=== PATIENT | female | born 1940 | race Caucasian/White ===

== ENCOUNTER 2020-07-18 08:47 | Inpatient (IN) ==
[2020-07-18] MEDS ORDERED: SODIUM CHLORIDE 0.9% 1,000 ML IV STA ×2 (09:38→10:54)
[2020-07-18 10:19] LABS: Basophils % 0.1 % (0.0-0.8); Eosinophils % 0.1 % (0.00-10.9); Hematocrit 39.4 VOL% (35.7-47.0); Hemoglobin 13.5 GM/DL (12.0-16.0); Immature Granulocytes % 0.5 %; Immature Granulocytes Absolute 0.05 #; Lymphocytes # 0.5 10*3/uL (1.4-4.0); Lymphocytes % 5.5 % (21.3-54.2); Mean Corpuscular HGB Conc 34.3 GM/DL (32-36); Mean Corpuscular Volume 88.3 FL (87-102); Mean Platelet Volume 10.4 FL (9.6-12.0); Monocytes % 10.2 % (1.7-12.7); Neutrophils % 83.6 % (38.7-73.9); Platelet Count 348 T/CUMM (130-400); Red Blood Count 4.46 MC/CUMM (3.8-5.5); Red Cell Distribution Width 12.5 % (9.3-17.3); White Blood Count 9.9 T/CUMM (4-12)
[2020-07-18 10:30] LABS: Bilirubin,Urine Negative (Negative); Blood, Urine Negative (Negative); Glucose,Urine (UA) Negative (Negative); Hyaline Casts,Urine 1 /LPF (0-3); Ketones,Urine Negative (Negative); Mucus,Urine Few /LPF (Occasional); Nitrite,Urine Negative (Negative); Protein,Urine 30 MG/DL; RBC,Urine 8 /HPF (0-4); Squamous Epithelial Cell,Urine Occasional /HPF (0-10); Urine Appearance CLEAR (Clear); Urine Color Yellow (Yellow); Urine Specific Gravity 1.015 (1.001-1.035); Urine Urobilinogen < 2.0 EU/DL (0.2-1.0); WBC,Urine 3 /HPF (0-6)
[2020-07-18 10:45] LABS: Alanine Aminotransferase 19 U/L (13-56); Albumin 3.4 G/DL (3.4-5.0); Alkaline Phosphatase 134 U/L (45-117); Aspartate Amino Transferase 28 U/L (0-37); Blood Urea Nitrogen 12 MG/DL (7-18); Calcium 8.9 MG/DL (8.5-10.1); Carbon Dioxide 24 MMOL/L (21-32); Estimated Glom Filtration Rate 62 ML/MIN; Ferritin 630.4 ng/ml (8-252); Glucose 125 MG/DL (74-106); Osmolality,Calculated 253.4 MOS/KG (273-304); Potassium 3.2 MMOL/L (3.5-5.1); Sodium 126 MMOL/L (136-145); Total Protein 8.3 G/DL (6.4-8.2)
[2020-07-18] MEDS ORDERED: cefTRIAXone 1,000 MG in SODIUM CHLORIDE 0.9% 100 ML IV STA (11:01)
[2020-07-18] MEDS ORDERED: DEXTROSE 50% 25 GM/50 ML VIAL IV PRN (11:16)
[2020-07-18] MEDS ORDERED: GLUCAGON 1 MG VIAL IM PRN (11:16)
[2020-07-18] MEDS ORDERED: guaiFENesin/DM ER 600-30 MG TABLET PO PRN (11:16)
[2020-07-18] MEDS ORDERED: ONDANSETRON 4 MG/2 ML VIAL IV PRN (11:16)
[2020-07-18] MEDS ORDERED: DOCUSATE SODIUM 100 MG CAPSULE PO PRN (11:16)
[2020-07-18] MEDS ORDERED: hydrALAZINE 20 MG/1 ML VIAL IV PRN (11:16)
[2020-07-18] MEDS ORDERED: AZITHROMYCIN 250 MG TABLET PO ONE (12:13)
[2020-07-18] MEDS ORDERED: MAGNESIUM SULF RIDER 4 GM in PREMIX 1 EACH IV PRN (12:17)
[2020-07-18] MEDS: SODIUM CHLORIDE 0.9% 1,000 ML IV SCH (15:33)
[2020-07-18] MEDS: POTASSIUM CHLORIDE 20 MEQ TABLET PO PRN ×3 (15:33→19:15)
[2020-07-18] MEDS: ENOXAPARIN 40 MG/0.4 ML SYRINGE SUBCUT SCH (15:33)
[2020-07-18] MEDS ORDERED: SODIUM CHLORIDE 0.9% 1,000 ML IV ONE (15:55)
[2020-07-18] MEDS ORDERED: ALPRAZolam 0.5 MG TABLET PO ONE (15:57)
[2020-07-18] MEDS ORDERED: GALCANEZUMAB GNLM 120 MG/ML SUBCUT SCH (16:00)
[2020-07-18] MEDS: ACETAMINOPHEN 325 MG TABLET PO PRN ×2 (16:15→22:19)
[2020-07-18] MEDS: MAGNESIUM SULF RIDER 2 GM in PREMIX 1 EACH IV PRN (17:48)
[2020-07-18] MEDS: ALPRAZolam 0.5 MG TABLET PO SCH (21:42)
[2020-07-19] MEDS: AMANTADINE 100 MG CAPSULE PO SCH ×3 (00:04→21:22)
[2020-07-19] MEDS: ACETAMINOPHEN 325 MG TABLET PO PRN ×2 (04:47→21:22)
[2020-07-19] MEDS: SODIUM CHLORIDE 0.9% 1,000 ML IV SCH ×3 (04:49→21:23)
[2020-07-19 06:46] LABS: Basophils % 0.3 % (0.0-0.8); Eosinophils % 0.5 % (0.00-10.9); Hematocrit 31.8 VOL% (35.7-47.0); Hemoglobin 10.9 GM/DL (12.0-16.0); Immature Granulocytes % 0.6 %; Immature Granulocytes Absolute 0.05 #; Lymphocytes # 0.7 10*3/uL (1.4-4.0); Lymphocytes % 8.8 % (21.3-54.2); Mean Corpuscular HGB Conc 34.3 GM/DL (32-36); Mean Corpuscular Volume 89.3 FL (87-102); Mean Platelet Volume 10.9 FL (9.6-12.0); Monocytes % 10.3 % (1.7-12.7); Neutrophils % 79.5 % (38.7-73.9); Platelet Count 317 T/CUMM (130-400); Red Blood Count 3.56 MC/CUMM (3.8-5.5); Red Cell Distribution Width 12.5 % (9.3-17.3); White Blood Count 7.7 T/CUMM (4-12)
[2020-07-19 07:22] LABS: Calcium 7.9 MG/DL (8.5-10.1); Osmolality,Calculated 264.4 MOS/KG (273-304); Potassium 3.2 MMOL/L (3.5-5.1)
[2020-07-19 07:22] LABS: Atypical Lymphocytes Few
[2020-07-19 07:23] LABS: Platelet Estimate Normal
[2020-07-19] MEDS: CYANOCOBALAMIN 500 MCG TABLET PO SCH (09:13)
[2020-07-19] MEDS: AZITHROMYCIN 250 MG TABLET PO SCH (09:13)
[2020-07-19] MEDS: POTASSIUM CHLORIDE 20 MEQ TABLET PO PRN ×4 (09:13→16:36)
[2020-07-19] MEDS: FLUoxetine 20 MG CAPSULE PO SCH (09:13)
[2020-07-19] MEDS: cefTRIAXone 1,000 MG in SYRINGE 1 EACH IV SCH (09:13)
[2020-07-19] MEDS: FLUTICASONE 50 MCG NASAL SPRAY 16 GM BOTTLE BOTH NARES SCH (09:13)
[2020-07-19] MEDS: ALPRAZolam 0.5 MG TABLET PO SCH ×2 (09:13→21:20)
[2020-07-19] MEDS ORDERED: guaiFENesin 200 MG/10 ML UDCUP PO PRN (09:33)
[2020-07-19] MEDS: oxyCODONE IR 5 MG TABLET PO PRN ×2 (11:16→21:20)
[2020-07-19] MEDS: ENOXAPARIN 40 MG/0.4 ML SYRINGE SUBCUT SCH (11:16)
[2020-07-19] MEDS ORDERED: BENZONATATE 100 MG CAPSULE PO PRN (15:41)
[2020-07-19] MEDS: traZODone 50 MG TABLET PO PRN (21:23)
[2020-07-20] MEDS: SODIUM CHLORIDE 0.9% 1,000 ML IV SCH ×3 (02:28→17:45)
[2020-07-20] MEDS: ACETAMINOPHEN 325 MG TABLET PO PRN ×2 (05:30→23:57)
[2020-07-20 06:35] LABS: Basophils % 0.2 % (0.0-0.8); Eosinophils # 0.1 10*3/uL (0.0-0.87); Hematocrit 31.8 VOL% (35.7-47.0); Hemoglobin 10.8 GM/DL (12.0-16.0); Immature Granulocytes % 0.5 %; Immature Granulocytes Absolute 0.04 #; Lymphocytes # 0.6 10*3/uL (1.4-4.0); Lymphocytes % 6.7 % (21.3-54.2); Mean Corpuscular Volume 91.9 FL (87-102); Mean Platelet Volume 10.8 FL (9.6-12.0); Monocytes % 8.2 % (1.7-12.7); Neutrophils % 83.4 % (38.7-73.9); Platelet Count 251 T/CUMM (130-400); Red Blood Count 3.46 MC/CUMM (3.8-5.5); Red Cell Distribution Width 12.6 % (9.3-17.3); White Blood Count 8.8 T/CUMM (4-12)
[2020-07-20 06:54] LABS: Calcium 7.7 MG/DL (8.5-10.1); Osmolality,Calculated 263.4 MOS/KG (273-304); Potassium 3.8 MMOL/L (3.5-5.1)
[2020-07-20 07:04] LABS: Hypochromasia 1+; Lymphocytes 6 % (20-55); Microcytosis 1+; Platelet Estimate Adequate; Segmented Neutrophils 84 % (50-85); Total Cells Counted 100
[2020-07-20 07:07] LABS: Free T4 (Free Thyroxine) 1.65 NG/DL (0.76-1.46)
[2020-07-20] MEDS: CYANOCOBALAMIN 500 MCG TABLET PO SCH (08:11)
[2020-07-20] MEDS: cefTRIAXone 1,000 MG in SYRINGE 1 EACH IV SCH (08:11)
[2020-07-20] MEDS: MAGNESIUM SULF RIDER 2 GM in PREMIX 1 EACH IV PRN (08:11)
[2020-07-20] MEDS: ALPRAZolam 0.5 MG TABLET PO SCH ×2 (08:11→20:43)
[2020-07-20] MEDS: FLUoxetine 20 MG CAPSULE PO SCH (08:11)
[2020-07-20] MEDS: AMANTADINE 100 MG CAPSULE PO SCH ×2 (08:11→20:43)
[2020-07-20] MEDS: AZITHROMYCIN 250 MG TABLET PO SCH (08:12)
[2020-07-20] MEDS: FLUTICASONE 50 MCG NASAL SPRAY 16 GM BOTTLE BOTH NARES SCH (08:12)
[2020-07-20] MEDS: ENOXAPARIN 40 MG/0.4 ML SYRINGE SUBCUT SCH (12:04)
[2020-07-20 14:36] LABS: Bacteria,Urine Occasional /HPF (Few); Bilirubin,Urine Negative (Negative); Blood, Urine Small mg/dL (Negative); Glucose,Urine (UA) Negative (Negative); Ketones,Urine 20 mg/dL (Negative); Mucus,Urine Occasional /LPF (Occasional); Nitrite,Urine Negative (Negative); Protein,Urine Negative; RBC,Urine 2 /HPF (0-4); Squamous Epithelial Cell,Urine Occasional /HPF (0-10); Urine Appearance CLEAR (Clear); Urine Color Straw (Yellow); Urine Specific Gravity 1.009 (1.001-1.035); Urine Urobilinogen < 2.0 EU/DL (0.2-1.0); WBC,Urine 1 /HPF (0-6)
[2020-07-20] MEDS ORDERED: NICOTINE 14 MG/24 HR PATCH TRANSDERM PRN (15:28)
[2020-07-20] MEDS ORDERED: DILTIAZEM 50 MG/10 ML VIAL IV ONE (15:53)
[2020-07-20] MEDS: DILTIAZEM INJ 100 MG in SODIUM CHLORIDE 0.9% 100 ML IV SCH (16:56)
[2020-07-20] MEDS: oxyCODONE IR 5 MG TABLET PO PRN (22:00)
[2020-07-21] MEDS: DILTIAZEM INJ 100 MG in SODIUM CHLORIDE 0.9% 100 ML IV SCH ×3 (01:30→20:27)
[2020-07-21 05:46] LABS: Basophils % 0.3 % (0.0-0.8); Eosinophils # 0.1 10*3/uL (0.0-0.87); Eosinophils % 0.8 % (0.00-10.9); Hematocrit 31.2 VOL% (35.7-47.0); Hemoglobin 10.3 GM/DL (12.0-16.0); Immature Granulocytes % 0.6 %; Immature Granulocytes Absolute 0.06 #; Lymphocytes # 0.3 10*3/uL (1.4-4.0); Lymphocytes % 3.2 % (21.3-54.2); Mean Corpuscular Volume 89.7 FL (87-102); Monocytes % 7.7 % (1.7-12.7); Neutrophils % 87.4 % (38.7-73.9); Platelet Count 350 T/CUMM (130-400); Red Blood Count 3.48 MC/CUMM (3.8-5.5); Red Cell Distribution Width 12.5 % (9.3-17.3); White Blood Count 10.7 T/CUMM (4-12)
[2020-07-21 06:14] LABS: Calcium 7.7 MG/DL (8.5-10.1); Osmolality,Calculated 267.1 MOS/KG (273-304); Potassium 2.8 MMOL/L (3.5-5.1)
[2020-07-21 06:27] LABS: Hypochromasia 1+; Lymphocytes 4 % (20-55); Microcytosis 1+; Platelet Estimate Adequate; Segmented Neutrophils 95 % (50-85); Total Cells Counted 100
[2020-07-21] MEDS: SODIUM CHLORIDE 0.9% 1,000 ML IV SCH ×2 (07:17→07:37)
[2020-07-21] MEDS ORDERED: POTASSIUM CHLORIDE 20 MEQ TABLET PO ONE (07:38)
[2020-07-21] MEDS: AMANTADINE 100 MG CAPSULE PO SCH ×2 (09:00→20:29)
[2020-07-21] MEDS: CYANOCOBALAMIN 500 MCG TABLET PO SCH (09:00)
[2020-07-21] MEDS: FLUoxetine 20 MG CAPSULE PO SCH (09:00)
[2020-07-21] MEDS ORDERED: DILTIAZEM CD 240 MG CAPSULE PO SCH (09:00)
[2020-07-21] MEDS: ALPRAZolam 0.5 MG TABLET PO SCH ×2 (09:01→20:29)
[2020-07-21] MEDS: cefTRIAXone 1,000 MG in SYRINGE 1 EACH IV SCH (09:01)
[2020-07-21] MEDS: AZITHROMYCIN 250 MG TABLET PO SCH (09:01)
[2020-07-21] MEDS: FLUTICASONE 50 MCG NASAL SPRAY 16 GM BOTTLE BOTH NARES SCH (09:08)
[2020-07-21] MEDS: oxyCODONE IR 5 MG TABLET PO PRN (09:57)
[2020-07-21] MEDS: ENOXAPARIN 30 MG/0.3 ML SYRINGE SUBCUT SCH (12:30)
[2020-07-21] MEDS: ACETAMINOPHEN 325 MG TABLET PO PRN (15:10)
[2020-07-21 16:05] LABS: Calcium 8.3 MG/DL (8.5-10.1); Potassium 3.6 MMOL/L (3.5-5.1)
[2020-07-21] MEDS: POTASSIUM CHLORIDE 10 MEQ TABLET PO SCH (20:29)
[2020-07-21] MEDS: METOPROLOL TARTRATE 25 MG TABLET PO SCH (20:29)
[2020-07-22] MEDS: traZODone 50 MG TABLET PO PRN (02:53)
[2020-07-22] MEDS: DILTIAZEM INJ 100 MG in SODIUM CHLORIDE 0.9% 100 ML IV SCH ×3 (02:54→15:48)
[2020-07-22 05:55] LABS: Basophils % 0.4 % (0.0-0.8); Eosinophils # 0.1 10*3/uL (0.0-0.87); Eosinophils % 0.9 % (0.00-10.9); Hematocrit 33.2 VOL% (35.7-47.0); Hemoglobin 11.3 GM/DL (12.0-16.0); Immature Granulocytes Absolute 0.11 #; Lymphocytes # 0.3 10*3/uL (1.4-4.0); Lymphocytes % 2.5 % (21.3-54.2); Mean Corpuscular Volume 89.2 FL (87-102); Mean Platelet Volume 10.3 FL (9.6-12.0); Monocytes % 9.9 % (1.7-12.7); Neutrophils % 85.3 % (38.7-73.9); Platelet Count 378 T/CUMM (130-400); Red Blood Count 3.72 MC/CUMM (3.8-5.5); Red Cell Distribution Width 12.9 % (9.3-17.3); White Blood Count 10.5 T/CUMM (4-12)
[2020-07-22] MEDS ORDERED: diphenhydrAMINE 50 MG/1 ML VIAL IV ONE (05:58)
[2020-07-22 06:03] LABS: Calcium 8.4 MG/DL (8.5-10.1); Osmolality,Calculated 277.7 MOS/KG (273-304); Potassium 3.6 MMOL/L (3.5-5.1)
[2020-07-22 06:17] LABS: Eosinophils 1 % (0-10); Hypochromasia Slight; Lymphocytes 2 % (20-55); Microcytosis Slight; Ovalocytes Slight; Platelet Estimate Adequate; Segmented Neutrophils 87 % (50-85); Total Cells Counted 100
[2020-07-22] MEDS ORDERED: LEVALBUTEROL 1.25 MG/3 ML NEB RESP TX ONE (08:17)
[2020-07-22] MEDS: CYANOCOBALAMIN 500 MCG TABLET PO SCH ×2 (08:43→08:56)
[2020-07-22] MEDS: FLUoxetine 20 MG CAPSULE PO SCH (08:43)
[2020-07-22] MEDS: ALPRAZolam 0.5 MG TABLET PO SCH ×2 (08:44→22:06)
[2020-07-22] MEDS: oxyCODONE IR 5 MG TABLET PO PRN (08:44)
[2020-07-22] MEDS: POTASSIUM CHLORIDE 10 MEQ TABLET PO SCH ×3 (08:44→22:06)
[2020-07-22] MEDS: METOPROLOL TARTRATE 25 MG TABLET PO SCH ×2 (08:44→22:05)
[2020-07-22] MEDS: AZITHROMYCIN 250 MG TABLET PO SCH (08:44)
[2020-07-22] MEDS: AMANTADINE 100 MG CAPSULE PO SCH ×4 (08:45→22:05)
[2020-07-22] MEDS: cefTRIAXone 1,000 MG in SYRINGE 1 EACH IV SCH (08:45)
[2020-07-22] MEDS: FLUTICASONE 50 MCG NASAL SPRAY 16 GM BOTTLE BOTH NARES SCH (08:55)
[2020-07-22] MEDS: LEVALBUTEROL 1.25 MG/3 ML NEB RESP TX SCH ×3 (10:39→19:55)
[2020-07-22] MEDS ORDERED: FUROSEMIDE 40 MG/4 ML VIAL IV ONE (10:50)
[2020-07-22] MEDS: ENOXAPARIN 30 MG/0.3 ML SYRINGE SUBCUT SCH (12:04)
[2020-07-22] MEDS: ACETAMINOPHEN 325 MG TABLET PO PRN (13:40)
[2020-07-22 16:58] LABS: ABG Base Excess 0.9 MMOL/L (-2.5-2.5); ABG HCO3 25.2 MMOL/L (20-26); ABG Oxygen Saturation 94.2 % (95-100); ABG PCO2 32.4 MM HG (35-48); ABG PH 7.477 (7.35-7.45); ABG PO2 68.4 MM HG (80-95); ABG TCO2 21.6 MMOL/L (23-27)
[2020-07-22] MEDS ORDERED: DILTIAZEM CD 240 MG CAPSULE PO ONE (17:00)
[2020-07-22 17:14] LABS: Basophils % 0.1 % (0.0-0.8); Eosinophils # 0.1 10*3/uL (0.0-0.87); Eosinophils % 0.9 % (0.00-10.9); Hematocrit 33.1 VOL% (35.7-47.0); Immature Granulocytes % 0.7 %; Immature Granulocytes Absolute 0.05 #; Lymphocytes # 0.3 10*3/uL (1.4-4.0); Lymphocytes % 3.7 % (21.3-54.2); Mean Corpuscular HGB Conc 33.2 GM/DL (32-36); Mean Corpuscular Volume 89.9 FL (87-102); Mean Platelet Volume 10.4 FL (9.6-12.0); Monocytes % 11.1 % (1.7-12.7); Neutrophils % 83.5 % (38.7-73.9); Platelet Count 197 T/CUMM (130-400); Red Blood Count 3.68 MC/CUMM (3.8-5.5); White Blood Count 6.7 T/CUMM (4-12)
[2020-07-22 17:27] LABS: Calcium 8.5 MG/DL (8.5-10.1); Osmolality,Calculated 284.4 MOS/KG (273-304); Potassium 3.5 MMOL/L (3.5-5.1)
[2020-07-22] MEDS: FUROSEMIDE 20 MG/2 ML VIAL IV SCH (18:31)
[2020-07-22 18:39] LABS: Band Neutrophils 6 % (0-10); Lymphocytes 4 % (20-55); Platelet Estimate Normal; Segmented Neutrophils 84 % (50-85); Total Cells Counted 100
[2020-07-22 21:02] LABS: ABG Base Excess 2.8 MMOL/L (-2.5-2.5); ABG HCO3 26.2 MMOL/L (20-26); ABG Oxygen Saturation 60.9 % (95-100); ABG PCO2 38.8 MM HG (35-48); ABG PH 7.448 (7.35-7.45); ABG TCO2 24.2 MMOL/L (23-27); Allen Test Positive; Pt O2 Delivery Device BIPAP
[2020-07-22 21:05] LABS: ABG PO2 33.8 MM HG (80-95)
[2020-07-22] MEDS: APIXABAN 5 MG TABLET PO SCH ×2 (21:28→22:06)
[2020-07-22 21:41] LABS: ABG Base Excess 3.4 MMOL/L (-2.5-2.5); ABG HCO3 27.3 MMOL/L (20-26); ABG Oxygen Saturation 92.6 % (95-100); ABG PH 7.497 (7.35-7.45); ABG PO2 62.5 MM HG (80-95); ABG TCO2 23.6 MMOL/L (23-27)
[2020-07-22 22:59] LABS: Allen Test Positive; Pt O2 Delivery Device BIPAP
[2020-07-22 23:00] LABS: ABG Base Excess 3.2 MMOL/L (-2.5-2.5); ABG HCO3 27.2 MMOL/L (20-26); ABG Oxygen Saturation 94.9 % (95-100); ABG PCO2 33.6 MM HG (35-48); ABG PH 7.498 (7.35-7.45); ABG PO2 70.5 MM HG (80-95); ABG TCO2 23.2 MMOL/L (23-27)
[2020-07-22] MEDS: PIPERACILLIN/TAZOBACTAM 3,375 MG in SODIUM CHLORIDE 0.9% 100 ML IV SCH (23:45)
[2020-07-23] MEDS: LEVALBUTEROL 1.25 MG/3 ML NEB RESP TX SCH ×5 (01:00→14:59)
[2020-07-23] MEDS ORDERED: ACETAMINOPHEN 650 MG SUPP RECTAL PRN (01:33)
[2020-07-23] MEDS ORDERED: VANCOMYCIN INJ 1,000 MG in SODIUM CHLORIDE 0.9% 250 ML IV SCH (03:00)
[2020-07-23] MEDS ORDERED: LORazepam 2 MG/1 ML VIAL IV ONE (06:05)
[2020-07-23] MEDS: PIPERACILLIN/TAZOBACTAM 3,375 MG in SODIUM CHLORIDE 0.9% 100 ML IV SCH ×2 (06:45→18:26)
[2020-07-23 07:12] LABS: ABG Base Excess 3.1 MMOL/L (-2.5-2.5); ABG Oxygen Saturation 89.1 % (95-100); ABG PCO2 35.8 MM HG (35-48); ABG PH 7.478 (7.35-7.45); ABG PO2 56.9 MM HG (80-95); ABG TCO2 23.8 MMOL/L (23-27)
[2020-07-23 07:16] LABS: Basophils % 0.2 % (0.0-0.8); Eosinophils # 0.1 10*3/uL (0.0-0.87); Eosinophils % 1.3 % (0.00-10.9); Hematocrit 30.6 VOL% (35.7-47.0); Hemoglobin 10.6 GM/DL (12.0-16.0); Immature Granulocytes % 1.1 %; Immature Granulocytes Absolute 0.05 #; Lymphocytes # 0.3 10*3/uL (1.4-4.0); Lymphocytes % 5.3 % (21.3-54.2); Mean Corpuscular HGB Conc 34.6 GM/DL (32-36); Mean Corpuscular Volume 87.4 FL (87-102); Mean Platelet Volume 10.9 FL (9.6-12.0); Monocytes % 10.7 % (1.7-12.7); NRBC # 0.03 10*3/uL; Neutrophils % 81.4 % (38.7-73.9); Platelet Count 120 T/CUMM (130-400); Red Cell Distribution Width 13.1 % (9.3-17.3); White Blood Count 4.7 T/CUMM (4-12)
[2020-07-23 07:34] LABS: Calcium 8.5 MG/DL (8.5-10.1); Osmolality,Calculated 288.1 MOS/KG (273-304); Potassium 2.9 MMOL/L (3.5-5.1)
[2020-07-23 07:39] LABS: Band Neutrophils 12 % (0-10); Hypochromasia Slight; Lymphocytes 3 % (20-55); Nucleated Red Blood Cells 2 (0-5); Segmented Neutrophils 76 % (50-85); Total Cells Counted 100
[2020-07-23 07:40] LABS: Microcytosis 1+; Platelet Estimate Adequate
[2020-07-23] MEDS ORDERED: FUROSEMIDE 40 MG/4 ML VIAL IV ONE (08:29)
[2020-07-23] MEDS: FUROSEMIDE 20 MG/2 ML VIAL IV SCH ×2 (08:46→16:27)
[2020-07-23] MEDS ORDERED: AZITHROMYCIN INJ 500 MG in SODIUM CHLORIDE 0.9% 250 ML IV SCH (09:00)
[2020-07-23] MEDS ORDERED: DILTIAZEM CD 240 MG CAPSULE PO SCH (09:00)
[2020-07-23] MEDS: APIXABAN 5 MG TABLET PO SCH (09:14)
[2020-07-23] MEDS: AMANTADINE 100 MG CAPSULE PO SCH (09:15)
[2020-07-23] MEDS: METOPROLOL TARTRATE 25 MG TABLET PO SCH (09:15)
[2020-07-23] MEDS: POTASSIUM CHLORIDE 10 MEQ TABLET PO SCH (09:15)
[2020-07-23] MEDS: FLUoxetine 20 MG CAPSULE PO SCH (09:15)
[2020-07-23] MEDS: CYANOCOBALAMIN 500 MCG TABLET PO SCH (09:15)
[2020-07-23] MEDS: ALPRAZolam 0.5 MG TABLET PO SCH (09:15)
[2020-07-23] MEDS: MORPHINE 4 MG/1 ML VIAL IV PRN ×4 (09:50→18:10)
[2020-07-23] MEDS: methylPREDNISolone SOD SUC 40 MG/1 ML VIAL IV SCH ×2 (09:50→16:27)
[2020-07-23] MEDS: FLUTICASONE 50 MCG NASAL SPRAY 16 GM BOTTLE BOTH NARES SCH (09:51)
[2020-07-23] MEDS ORDERED: DILTIAZEM INJ 100 MG in SODIUM CHLORIDE 0.9% 100 ML IV SCH (11:30)
[2020-07-23] MEDS ORDERED: SUCCINYLCHOLINE 200 MG/10 ML VIAL ONE (11:54)
[2020-07-23] MEDS ORDERED: ETOMIDATE 20 MG/10 ML VIAL IV ONE (11:54)
[2020-07-23] MEDS: POTASSIUM CHLORIDE RIDER 10 MEQ in PREMIX 1 EACH IV SCH ×4 (12:37→16:15)
[2020-07-23 14:42] VITALS: BP 165/78
[2020-07-23] MEDS ORDERED: METOPROLOL TARTRATE 5 MG/5 ML VIAL IV ONE (15:40)
[2020-07-23] MEDS: LORazepam 2 MG/1 ML VIAL IV PRN ×2 (17:38→18:26)
== END 2020-07-23 18:59 | disposition expired | DRG 177 ==
LOC: N.EDINP 08:47 → N.ED 08:47 → SUATTDRO 11:16 → N.2E 14:16 → SUATTDRO 07-20 10:04 → N.TELES 07-20 16:35 → N.CC 07-23 08:11 → N.TELES 07-23 10:04 → N.CC 07-23 13:00
PROVIDERS: ADMIT Internal Medicine; ATTEND Internal Medicine Geriatric Medicine